=== PATIENT | male | born 1990 | race Caucasian/White ===

== ENCOUNTER 2019-08-18 12:13 | Outpatient (CLI) | payer BC, MEDICAID, SELFPAY ==
--- NOTE | 2019-08-18 12:26 | CT_ITS ---
WS: [id number] CT ABDOMEN CONTRAST TECHNIQUE: Contrast enhanced CT of the abdomen with coronal and sagittal reformatted images. CLINICAL INFORMATION: HTN/?PHENOCHROLOCYTOMA DUE TO ELEVATED URINE METANEPHINES COMPARISON: None. DLP: 971.[address] scans at [facility] use at least one of these dose optimization techniques: automat ed exposure control; mA and/or kV adjustment per patient size (includes targeted exams where dose is matched to clinical indication); or iterative reconstruction. FINDINGS: Diffuse fatty infiltration of the liver. Normal portal vein and splenic vein. Gallbladder is contract ed. Hepatomegaly Measuring 17.7 CM. Normal spleen. Normal GE junction. Noncalcified pulmonary nodule righ t lower lobe measuring 3.8 mm. Lung bases are well aerated. Adrenal glands are normal. No adrenal lesions. Normal renal parenchymal enhancement. No hydronephrosi s. Tiny left renal cyst. Proximal ureters appear normal. Incidental fat-containing abdominal hernia. No abdominal lymphadenopathy. Normal GE junction. CT/CT abdomen w con* [id number] IMPRESSION: 1. Hepatomegaly with diffuse fatty infiltration of the liver. 2. Gallbladder is contracted. 3. No adrenal lesions. Adrenal glands appear normal. 4. Tiny noncalcified pulmonary nodule right lower lobe measuring 3.8 mm. Recom mend 12 month follow-up chest CT. 5. No other significant findings.
[2019-08-18] MEDS: iohexol 300 mg/mL 50 mL Btl PO (13:19)
[2019-08-18] MEDS: iohexol 300 mg/mL 100 mL Btl IV (13:20)
== END 2019-08-18 12:14 | disposition home or self-care (01) ==
LOC: RADWPI 12:25
PROVIDERS: Family Provider Nurse Practitioner Family; PCP Nurse Practitioner Family; Referring Provider Nurse Practitioner Family; Visit Provider Nurse Practitioner Family
DX: R89.9 Unspecified abnormal finding in specimens from other organs, systems and tissues (principal); I10 Essential (primary) hypertension; K76.0 Fatty (change of) liver, not elsewhere classified; R91.1 Solitary pulmonary nodule
CPT/HCPCS: 74160; Q9967

== ENCOUNTER 2019-08-25 07:23 | Outpatient (CLI) | payer BC, MEDICAID, SELFPAY ==
--- NOTE | 2019-08-25 07:48 | USCV_ITS ---
Hussein Bowman Age: 29 Gender: M : 1990 Exam Date: 08/25/2019 08:19 Ordering Phys: Kamila Go NP Technologist: Ahsan Morales Exam Location: [facility] [place] Indication: HTN Aortic Velocity @ SMA (cm/s) 105 RIGHT KIDNEY LEFT KIDNEY Velocity (cm/s) Velocity (cm/s) Sys/Nguyen Sys/Nguyen Resistive Index Resistive Index 82.5 / 21.5 0.74 Proximal Renal Artery 122.1 / 31.2 0.74 60.7 / 16.7 0.73 Mid Renal Artery 108.4 / 35.8 0.67 65.2 / 17.4 0.73 Distal Renal Artery 113.9 / 40.4 0.65 61.4 / 19.7 0.68 Hilar 108.4 / 29.4 0.73 37.5 / 12.2 0.67 Upper Pole 62.4 / 20.2 0.68 31.7 / 10.9 0.66 Mid Pole 62.4 / 21.1 0.66 34.4 / 9.0 0.74 Lower Pole 41.6 / 15.9 0.62 0.80 Renal Aortic Ratio 1.17 Accleration Index (cm/sec2) 954.00 Hilar 1249.0 0 794.00 Upper Pole 1575.0 0 544.00 Mid Pole 1411.0 0 968.00 Lower Pole 1900.0 0 112.2 Kidney Length (mm) 124.9 FINDINGS Normal Doppler flow velocities, ratios and indices. Normal kidney dimensions. CONCLUSIONS 1. No evidence of any significant renal artery stenosis based on the above findings 2. Normal kidney dimensions Dr Joe Olvera MD [facility] (Electronically Signed) Final Date: 25 August 2019 12:53 S
--- NOTE | 2019-08-25 07:48 | USCV_ITS ---
Hussein Bowman Age: 29 Gender: M : 1990 Exam Date: 08/25/2019 08:06 Ordering Phys: Kamila Go NP Technologist: Ahsan Morales [place] [facility] [place]: HTN HX OF [place] BP: 190 / 90 HR: 70 Rhythm: Sinus Technical Quality: Fair MEASUREMENTS (Male / Female) Normal Values 2D ECHO LV Diastolic Diameter PLAX 4.4 cm 4.2 - 5.9 / 3.9 - 5.3 cm LV Systolic Diameter PLAX 2.8 cm IVS Diastolic Thickness 1.0 cm 0.6 - 1.0 / 0.6 - 0.9 cm IVS Systolic Thickness 1.0 cm LVPW Diastolic Thickness 1.1 cm 0.6 - 1.0 / 0.6 - 0.9 cm LVPW Systolic Thickness 1.3 cm LVOT Diameter 2.0 cm LV Ejection Fraction 2D Teich 65.3 % LV Ejection Fraction MOD 2C 63.5 % LV Ejection Fraction 2C AL 64.3 % LA Diameter 4.6 cm LA Width 5.0 cm LA Height 5.2 cm RA Width 4.0 cm RA Height 4.7 cm Aorta at Sinotubular Diameter 2.7 cm M-MODE LV Diastolic Diameter MM 4.6 cm 4.2 - 5.9 / 3.9 - 5.3 cm LV Systolic Diameter MM 3.4 cm LV Ejection Fraction MM Teich 52.4 % IVS Diastolic Thickness MM 1.0 cm 0.6 - 1.0 / 0.6 - 0.9 cm IVS Systolic Thickness MM 1.4 cm LVPW Diastolic Thickness MM 1.0 cm 0.6 - 1.0 / 0.6 - 0.9 cm LVPW Systolic Thickness MM 1.6 cm RV Diastolic Diameter MM 1.7 cm Aortic Annulus Diameter 3.3 cm LA Ao Ratio MM 1.4 MV E Point Septal Separation 1.1 cm DOPPLER AV Peak Velocity 160.0 cm/s LVOT Peak Velocity 123.0 cm/s AV Area Cont Eq vti 2.5 cm squared AV Area Cont Eq pk 2.4 cm squared MV Area PHT 4.4 cm squared Mitral E to A Ratio 1.4 MV E' Velocity 14.0 cm/s Mitral E to MV E' Ratio 7.4 Mitral E to LV E' Lateral Ratio 6.7 Mitral E to LV E' Septal Ratio 8.2 TR Peak Velocity 238.0 cm/s TR Peak Gradient 22.6 mmHg TV Peak E Velocity 100.0 cm/s Right Atrial Pressure 3.0 mmHg Pulmonary Artery Systolic Pressu 25.7 mmHg PV Peak Velocity 151.0 cm/s FINDINGS Left Ventricle Normal left ventricular size, systolic function and wall thickness, with no regional wall motion abnormalities. Normal left ventricular wall thickness. Normal diastolic filling pattern. Left ventricular ejection fraction is estimated at 65 %. Right Ventricle The right ventricle is normal in size and function. Right Atrium The right atrium is normal in size. Left Atrium Mildly increased left atrial size. Mitral Valve Structurally normal mitral valve without significant stenosis or prolapse. There is no mitral regurgitation. Aortic Valve Structurally normal aortic valve without significant sclerosis or stenosis. There is no aortic regurgitation. Tricuspid Valve Structurally normal tricuspid valve without significant stenosis or regurgitation. Pulmonary artery systolic pressure is normal. Pulmonic Valve Structurally normal pulmonic valve without significant stenosis. There is no pulmonic regurgitation. Pericardium Normal pericardium without effusion. Aorta Normal ascending aorta dimension. CONCLUSIONS Normal left ventricular size, systolic function and wall thickness, with no regional wall motion abnormalities. Normal left ventricular wall thickness. Normal diastolic filling pattern. Left ventricular ejection fraction is estimated at 65 %. Mildly increased left atrial size. There are no prior echocardiogram studies to compare. Dr. Benito Rush MD (Electronically Signed) Final Date: 25 August 2019 12:49 S
== END 2019-08-25 07:24 | disposition home or self-care (01) ==
PROVIDERS: Family Provider Nurse Practitioner Family; PCP Nurse Practitioner Family; Visit Provider Nurse Practitioner Family
DX: R01.1 Cardiac murmur, unspecified (principal); I11.9 Hypertensive heart disease without heart failure
CPT/HCPCS: 93306; 93975

== ENCOUNTER 2020-10-25 11:06 | Outpatient (CLI) | payer MEDICAID, SELFPAY ==
--- NOTE | 2020-10-25 11:20 | XR_ITS ---
WS: [id number] PROCEDURE: XR chest 2V* [id number] CLINICAL INFORMATION: SOLITARY PULMONARY NODULE COMPARISON: CT abdomen pelvis August 18, 2019 FINDINGS: Heart: Normal cardiac silhouette. Lungs: Lungs are clear. No consolidation or pleural fluid. 3.8 pulmonary nodule right lower lobe seen on the prior CT not well seen on the radiograph. This can be followed up with chest CT. Bones: Normal visualized bony structures. XR/XR chest 2V* [id number] IMPRESSION: 1. 3.8 pulmonary nodule right lower lobe seen on the prior CT not well seen on today's radiograph. This can be followed up with chest CT. 2. No other significant findings.
== END 2020-10-25 11:07 | disposition home or self-care (01) ==
PROVIDERS: PCP Nurse Practitioner Family; Visit Provider Nurse Practitioner Family
DX: R91.1 Solitary pulmonary nodule (principal)
CPT/HCPCS: 71046

== ENCOUNTER 2020-11-08 08:35 | Outpatient (CLI) | payer MEDICAID, SELFPAY ==
--- NOTE | 2020-11-08 08:51 | CT_ITS ---
WS: [id number] CT CHEST TECHNIQUE: Contrast enhanced CT of the chest with coronal and sagittal reformatted images. CLINICAL INFORMATION: FOLLOW UP LUNG MASS COMPARISON: CT abdomen pelvis August 18, 2019 DLP: 965.[address] scans at [facility] use at least one of these dose optimization techniques: automat ed exposure control; mA and/or kV adjustment per patient size (includes targeted exams where dose is matched to clinical indication); or iterative reconstruction. FINDINGS: Stable noncalcified 3.5 mm pulmonary nodule right lower lobe. This is unchanged from previous. Slight hazy subpleural atelectasis right lower lobe. No other suspicious pulmonary parenchymal opacities. N o focal pneumonia or pleural fluid. Proximal main pulmonary arteries are normal. Normal caliber thoracic aorta. No mediastinal or hilar l ymphadenopathy. No axillary lymphadenopathy. Adrenal glands are normal. Hepatomegaly with diffuse fatty infiltration liver. CT/CT chest w con* [id number] IMPRESSION: 1. Stable noncalcified 3.5 mm nodule right lower lobe. This is unchanged from previous the CT abdomen pelvis. Recommend 12 month follow-up chest CT. 2. No other suspicious pulmonary parenchymal opacities. 3. No mediastinal or hilar lymphadenopathy. 4. Hepatomegaly with diffuse fatty infiltration liver.
[2020-11-08] MEDS: iohexol 300 mg/mL 100 mL Btl IV (09:09)
== END 2020-11-08 08:36 | disposition home or self-care (01) ==
LOC: RADWPI 08:37
PROVIDERS: PCP Nurse Practitioner Family; Visit Provider Family Medicine
DX: R91.1 Solitary pulmonary nodule (principal); R16.0 Hepatomegaly, not elsewhere classified; K76.0 Fatty (change of) liver, not elsewhere classified
CPT/HCPCS: 71260; Q9967

== ENCOUNTER 2022-02-01 08:41 | Outpatient (CLI) | payer MEDICAID, SELFPAY ==
--- NOTE | 2022-02-01 08:51 | CT_ITS ---
WS: [id number] CT CHEST WITH INTRAVENOUS CONTRAST HISTORY: SOLITARY PULMONARY NODULE TECHNIQUE: Contiguous 5 mm axial imaging performed on the thorax. Coronal and sagittal reformats are submitted. All CT scans at [facility] use at least one of these dose optimization techniques: automated exposure control; mA and/or kV adjustment per patient size (includes targeted exams where dose is matched to clinical indication); or iterative reconstruction. CONTRAST: Omnipaque 350; 95 mL IV. DLP: 796.68 mGy.cm COMPARISON: 11/08/2020 Lungs and central airway: Previously described 3.5 mm nodule at the RIGHT lung base is now calcified. Consistent with a benign granuloma. Additional benign granuloma at the RIGHT apex. No suspicious mas s or calcifications identified on today's examination. No pneumonia. No endobronchial lesion. Pleura: Normal. No pleural effusion. Heart and pericardium: Normal size heart with no pericardial effusion. Mediastinum and meeta: Small reactive type lymph nodes at the hilar regions. No enlarged lymph nodes. Vessels: Normal size aortic and pulmonary artery. No coronary artery calcifications. Chest wall and lower neck: No soft tissue masses. Upper abdomen: Enlarged liver with hepatic steatosis. Normal portal vein. Contracted gallbladder. No adrenal mass. Osseous structures: No destructive process. CT/CT chest w con* [id number] IMPRESSION: 1. Previously described 3.5 mm nodule at the RIGHT lung base is now calcified. Consistent with benign granuloma. No suspicious mass or nodules. 2. Hepatic steatosis.
[2022-02-01] MEDS: iohexol 350 mg/mL 100 mL Btl IV (09:24)
== END 2022-02-01 08:42 | disposition home or self-care (01) ==
PROVIDERS: PCP Nurse Practitioner Family; Visit Provider Nurse Practitioner Family
DX: R91.1 Solitary pulmonary nodule (principal); K76.0 Fatty (change of) liver, not elsewhere classified
CPT/HCPCS: 71260

== ENCOUNTER 2022-04-26 15:49 | Outpatient (CLI) | payer MEDICAID, SELFPAY ==
--- NOTE | 2022-04-26 16:07 | XR_ITS ---
WS: [id number] EXAMINATION: XR knee RT 1-2V [id number] REASON FOR EXAM: PAIN IN KNEES COMPARISON: None available. ORDER DATE: 04/26/2022 4:09 PM FINDINGS: There is no sign of any acute osseous or articular abnormality. There are no specific soft tissue abn ormalities. XR/XR knee RT 1-2V [id number] IMPRESSION: No acute change
--- NOTE | 2022-04-26 16:07 | XR_ITS ---
WS: [id number] EXAMINATION: XR knee LT 1-2V [id number] REASON FOR EXAM: PAIN IN KNEES COMPARISON: None available. ORDER DATE: 04/26/2022 4:09 PM FINDINGS: There is no sign of any acute osseous or articular abnormality. There are no specific soft tissue abn ormalities. XR/XR knee LT 1-2V [id number] IMPRESSION: No acute change
== END 2022-04-26 15:50 | disposition home or self-care (01) ==
PROVIDERS: PCP Nurse Practitioner Family; Visit Provider Nurse Practitioner Family
DX: M25.562 Pain in left knee (principal)
CPT/HCPCS: 73560

== ENCOUNTER 2023-09-21 05:25 | Emergency (ER) | payer MEDICAID, SELFPAY ==
[2023-09-21 05:26] VITALS: BP 197/116; PULSE 87; RESP 16; TEMP 36.4; O2SAT 94; BMI 34.2
--- NOTE | 2023-09-21 05:31 | W.ED.ABDPA2 ---
Documented by User: Xander Raines DO 09/21/23 05:37 HPI - Abdominal Pain General: Chief Complaint: Abdominal Pain Stated Complaint: Abd Pain Time Seen by Provider: 09/21/23 05:26 History of Present Illness: Patient presents to the ER from EMS with complaints of left flank, left upper quadrant abdominal pain radiating down to the left lower quadrant near the groin. Patient says woke him up from sleep at about 230 this morning. Says it feels like he got kicked in the flank by Lm. Patients family has a history of kidney stones with patient does not. Patient says he has not taken his blood pressure medicine for about the last 3 weeks. Patient blood pressure upon arrival is 197/116. EMS did give him approximately 200 mcg of fentanyl on route and this took the pain down from a 9/10 to about a 5/10. Patient denies any pain burning frequency or dysuria, fevers chills, Patient seen Dr. Brown June 2020, resistant hypertension, had renal Doppler which was negative, elevated triglycerides, echo with normal left ventricular systolic function in August 2019, medication changes, Review of Systems General: Reports: 10 or more systems reviewed and unremarkable except in HPI and below PFSH ED PFSH: Medical History Hypertension Family History Grandfather CAD (coronary artery disease) Hypertension Father Hypertension Brother Hypertension Social History Smoking and tobacco/nicotine status: never used tobacco/nicotine Alcohol intake: current Alcohol intake frequency: few times a week Alcohol type: beer Physical Exam Const: COMMON NORMALS: no acute distress, average body habitus, patient oriented x3, no limitations, healthy appearing, alert and well nourished HENMT: COMMON NORMALS: normocephalic, atraumatic, hearing grossly normal bilaterally, external ears normal, Normal external nose present, moist oral mucous membranes and oropharynx normal HEAD & SCALP: normocephalic and atraumatic NOSE: Normal external nose present EXTERNAL EAR: Yes external ears normal Neck/C-Spine: COMMON NORMALS: no JVD Chest: COMMONS NORMALS: normal inspection of the chest and normal palpation of entire chest wall Resp: COMMON NORMALS: normal respiratory effort, No retractions, No use of accessory muscles and clear to auscultation bilaterally AUSCULTATION: clear to auscultation bilaterally Cardio: COMMON NORMALS: no JVD, regular rate, regular rhythm, S1 normal heart sound present, S2 normal heart sound present, No gallops present (Cardio), No clicks present (Cardio), No murmurs present (Cardio) and No rub (Cardio) RATE: regular rate RHYTHM: regular rhythm HEART SOUNDS: S1 normal heart sound present and S2 normal heart sound present GI: COMMON NORMALS: Normal to inspection, nondistended, normoactive bowel sounds present, Soft to palpation and No hepatosplenomegaly present; negative for non-tender (Mildly tender to palpate left flank, mild to moderate left side of abdomen,) PALPATION: Yes Soft to palpation and Yes No hepatosplenomegaly present Neuro: COMMON NORMALS: patient oriented x3 SENSORIUM/ORIENTATION: Yes alert Course Vital Signs: Vital signs: Vital Signs Temperature 97.6 F 09/21/23 05:26 Pulse Rate 91 09/21/23 06:30 Respiratory Rate 16 09/21/23 06:30 Blood Pressure 181/101 09/21/23 06:30 Pulse Oximetry 97 09/21/23 06:30 Oxygen Delivery Me thod Room Air 09/21/23 06:30 MDM - Abdominal Pain Differential Diagnosis Likely abdominal pain and calculus of kidney; Unlikely acute appendicitis, constipation, diverticulitis, endometriosis, gastroenteritis, pancreatitis or small bowel obstruction Medical Records I reviewed the patient's medical records. Lab Data I reviewed the patient's lab results. 09/21/23 05:40 09/21/23 05:40 Labs/Radiology: Radiology Impressions Abdomen/Pelvis CT 09/21/23 05:38 IMPRESSION: 3 mm distal left ureteral calculus near the left ureterovesical junction with moderate hydronephrosis and hydroureter. Laboratory Results WBC 10.70 10^3/uL (3.29-11.43) 09/21/23 05:40 RBC 5.26 10^6/uL (3.85-5.65) 09/21/23 05:40 Hgb 15.50 g/dL (11.27-16.99) 09/21/23 05:40 Hct 46.6 % (37-53) 09/21/23 05:40 MCV 88.6 fl (82-101) 09/21/23 05:40 MCH 29.5 pg (27-33) 09/21/23 05:40 MCHC 33.3 g/dL (30-55) 09/21/23 05:40 RDW 12.4 % (12.1-15.1) 09/21/23 05:40 Plt Count 223 10^3/cmm (157-399) 09/21/23 05:40 MPV 9.3 fL (7.4-10.4) 09/21/23 05:40 Neut % (Auto) 82.2 % 09/21/23 05:40 Lymph % (Auto) 11.9 % 09/21/23 05:40 [place] % (Auto) 4.5 % 09/21/23 05:40 Eos % (Auto) 0.6 % 09/21/23 05:40 Baso % (Auto) 0.3 % 09/21/23 05:40 Neut # (Auto) 8.81 10^3/uL (1.8-7.7) H 09/21/23 05:40 Lymph # (Auto) 1.3 10^3/uL (0.8-4.8) 09/21/23 05:40 [place] # (Auto) 0.5 10^3/uL (0.2-0.9) 09/21/23 05:40 Eos # (Auto) 0.1 10^3/uL (0.0-0.8) 09/21/23 05:40 Baso # (Auto) 0.0 10^3/uL (0.0-0.1) 09/21/23 05:40 Nucleated RBC % (auto) 0 % 09/21/23 05:40 Nucleated RBCs # 0.0 /100WBC 09/21/23 05:40 Sodium 139 mmol/L (136-145) 09/21/23 05:40 Potassium 3.7 mmol/L (3.5-5.1) 09/21/23 05:40 Chloride 104 mmol/L (98-107) 09/21/23 05:40 Carbon Dioxide 22 mmol/L (22-29) 09/21/23 05:40 Anion Gap 16.7 (5-19) 09/21/23 05:40 BUN 11 mg/dL (6-20) 09/21/23 05:40 Creatinine 1.1 mg/dL (0.7-1.2) 09/21/23 05:40 GFR Calculation 77.6 mL/min (90-130) L 09/21/23 05:40 Glucose 140 mg/dL (65-115) H 09/21/23 05:40 Calculated Osmolality 290 mOsm/kg (285-295) 09/21/23 05:40 Calcium 8.9 mg/dL (8.5-10.5) 09/21/23 05:40 Total Bilirubin 0.4 mg/dL (0.15-1.2) 09/21/23 05:40 AST 25 U/L (0-40) 09/21/23 05:40 ALT 58 U/L (0-41) H 09/21/23 05:40 Alkaline Phosphatase 115 U/L (40-130) 09/21/23 05:40 Total Protein 7.9 g/dL (6.6-8.7) 09/21/23 05:40 Albumin 4.6 g/dL (3.5-5.2) 09/21/23 05:40 Globulin 3.3 g/dL (1.3-4.6) 09/21/23 05:40 Lipase 47 U/L (13-60) 09/21/23 05:40 Urine Color Yellow (Yellow) 09/21/23 06:25 Urine Appearance Hazy (CLEAR) A 09/21/23 06:25 Urine pH 6.5 (5-7) 09/21/23 06:25 Ur Specific [place] 1.020 (1.005-1.030) 09/21/23 06:25 Urine Protein Neg (Negative) 09/21/23 06:25 Urine Glucose (UA) Norm (Normal) 09/21/23 06:25 Urine Ketones 1+ (Negative) H 09/21/23 06:25 Urine Blood Neg (Negative) 09/21/23 06:25 Urine Nitrate Negative (Negative) 09/21/23 06:25 Urine Bilirubin Neg (Negative) 09/21/23 06:25 Urine Urobilinogen Neg mg/dL (Negative) 09/21/23 06:25 Ur Leukocyte Esterase Negative (Negative) 09/21/23 06:25 Urine RBC 0-4 /hpf (0-2) H 09/21/23 06:25 Urine WBC Rare /hpf (0-5) 09/21/23 06:25 Ur Squamous Epith Cells Rare /hpf (0-5) 09/21/23 06:25 Amorphous Sediment 2+ /hpf 09/21/23 06:25 Urine Bacteria Trace /hpf (NONE) 09/21/23 06:25 Coarse Granular Casts 0-4 /lpf H 09/21/23 06:25 Urine Mucus Trace /hpf 09/21/23 06:25 All radiology interpretation(s) finalized by discharge Discharge Plan Discharge Patient Disposition: Home Clinical Impression: Calculus of kidney Condition: Stable Prescriptions: New hydrocodone-acetaminophen 5-325 mg tablet 1 tab PO Q6H PRN (Reason: pain) Qty: 25 0RF promethazine 25 mg tablet 25 mg PO Q6H PRN (Reason: nausea and vomiting) Qty: 20 0RF tamsulosin 0.4 mg capsule 0.4 mg PO DAILY Qty: 20 0RF No Action amlodipine 10 mg tablet 10 mg PO DAILY hydrochlorothiazide 25 mg tablet 25 mg PO DAILY hydralazine 100 mg tablet 100 mg PO TID Qty: 90 3RF metoprolol tartrate 50 mg tablet 50 mg PO BID Qty: 60 3RF Discharge Orders: Discharge ED (Routine); Ordered 09/21/23 Ordered By: Abhi Gordillo Referrals: Kamila Go, FILM DEVELOPER [Primary Care Provider] - Discharge Diet: Usual diet Discharge Activity: Resume usual activity Patient Instructions: Kidney Stones (ED), Opioid Safety, Pain Management Activity Restrictions/Additional Instructions: Thank you for choosing [facility] for your healthcare needs today. Please realize this is an emergency room and that we are providing you with a medical screening exam and this may not be complete and all inclusive of all the testing and or work up that you may need to determine your ailment or severity of your illness. It is very important that you follow up as instructed or that you return to the Emergency Department should you have concerns or if your condition changes or worsens in any way. Sign Out Sign Out Data: Patient Sign Out occurred on 09/21/23 at 06:01. Patient's care was discussed, and care was transferred from Xander Raines DO to Abhi Gordillo DO. Coding Level of Care Code ED Printing Specialist for [employer] Documented by User: Abhi Gordillo DO 09/21/23 07:10 HPI - Abdominal Pain General: Chief Complaint: Abdominal Pain Stated Complaint: Abd Pain Time Seen by Provider: 09/21/23 05:26 [facility] ED PFSH: Medical History Hypertension Family History Grandfather CAD (coronary artery disease) Hypertension Father Hypertension Brother Hypertension Social History Smoking and tobacco/nicotine status: never used tobacco/nicotine Alcohol intake: current Alcohol intake frequency: few times a week Alcohol type: beer Course Vital Signs: Vital signs: Vital Signs Temperature 97.6 F 09/21/23 05:26 Pulse Rate 91 09/21/23 06:30 Respiratory Rate 16 09/21/23 06:30 Blood Pressure 181/101 09/21/23 06:30 Pulse Oximetry 97 09/21/23 06:30 Oxygen Delivery Me thod Room Air 09/21/23 06:30 MDM - Abdominal Pain Medical Decision Making Care assumed at change of shift. Patient has left nephrolithiasis is less than 3 mm at the UVJ. He does have some hydronephrosis no sign of infection. Will have the patient strain urine hydrocodone promethazine as needed. Scheduled tamsulosin. Referral to urology. Return if pain uncontrolled Differential Diagnosis Likely calculus of kidney Medical Records I reviewed the patient's medical records. Lab Data 09/21/23 05:40 09/21/23 05:40 Labs/Radiology: Radiology Impressions Abdomen/Pelvis CT 09/21/23 05:38 IMPRESSION: 3 mm distal left ureteral calculus near the left ureterovesical junction with moderate hydronephrosis and hydroureter. Laboratory Results WBC 10.70 10^3/uL (3.29-11.43) 09/21/23 05:40 RBC 5.26 10^6/uL (3.85-5.65) 09/21/23 05:40 Hgb 15.50 g/dL (11.27-16.99) 09/21/23 05:40 Hct 46.6 % (37-53) 09/21/23 05:40 MCV 88.6 fl (82-101) 09/21/23 05:40 MCH 29.5 pg (27-33) 09/21/23 05:40 MCHC 33.3 g/dL (30-55) 09/21/23 05:40 RDW 12.4 % (12.1-15.1) 09/21/23 05:40 Plt Count 223 10^3/cmm (157-399) 09/21/23 05:40 MPV 9.3 fL (7.4-10.4) 09/21/23 05:40 Neut % (Auto) 82.2 % 09/21/23 05:40 Lymph % (Auto) 11.9 % 09/21/23 05:40 [place] % (Auto) 4.5 % 09/21/23 05:40 Eos % (Auto) 0.6 % 09/21/23 05:40 Baso % (Auto) 0.3 % 09/21/23 05:40 Neut # (Auto) 8.81 10^3/uL (1.8-7.7) H 09/21/23 05:40 Lymph # (Auto) 1.3 10^3/uL (0.8-4.8) 09/21/23 05:40 [place] # (Auto) 0.5 10^3/uL (0.2-0.9) 09/21/23 05:40 Eos # (Auto) 0.1 10^3/uL (0.0-0.8) 09/21/23 05:40 Baso # (Auto) 0.0 10^3/uL (0.0-0.1) 09/21/23 05:40 Nucleated RBC % (auto) 0 % 09/21/23 05:40 Nucleated RBCs # 0.0 /100WBC 09/21/23 05:40 Sodium 139 mmol/L (136-145) 09/21/23 05:40 Potassium 3.7 mmol/L (3.5-5.1) 09/21/23 05:40 Chloride 104 mmol/L (98-107) 09/21/23 05:40 Carbon Dioxide 22 mmol/L (22-29) 09/21/23 05:40 Anion Gap 16.7 (5-19) 09/21/23 05:40 BUN 11 mg/dL (6-20) 09/21/23 05:40 Creatinine 1.1 mg/dL (0.7-1.2) 09/21/23 05:40 GFR Calculation 77.6 mL/min (90-130) L 09/21/23 05:40 Glucose 140 mg/dL (65-115) H 09/21/23 05:40 Calculated Osmolality 290 mOsm/kg (285-295) 09/21/23 05:40 Calcium 8.9 mg/dL (8.5-10.5) 09/21/23 05:40 Total Bilirubin 0.4 mg/dL (0.15-1.2) 09/21/23 05:40 AST 25 U/L (0-40) 09/21/23 05:40 ALT 58 U/L (0-41) H 09/21/23 05:40 Alkaline Phosphatase 115 U/L (40-130) 09/21/23 05:40 Total Protein 7.9 g/dL (6.6-8.7) 09/21/23 05:40 Albumin 4.6 g/dL (3.5-5.2) 09/21/23 05:40 Globulin 3.3 g/dL (1.3-4.6) 09/21/23 05:40 Lipase 47 U/L (13-60) 09/21/23 05:40 Urine Color Yellow (Yellow) 09/21/23 06:25 Urine Appearance Hazy (CLEAR) A 09/21/23 06:25 Urine pH 6.5 (5-7) 09/21/23 06:25 Ur Specific [place] 1.020 (1.005-1.030) 09/21/23 06:25 Urine Protein Neg (Negative) 09/21/23 06:25 Urine Glucose (UA) Norm (Normal) 09/21/23 06:25 Urine Ketones 1+ (Negative) H 09/21/23 06:25 Urine Blood Neg (Negative) 09/21/23 06:25 Urine Nitrate Negative (Negative) 09/21/23 06:25 Urine Bilirubin Neg (Negative) 09/21/23 06:25 Urine Urobilinogen Neg mg/dL (Negative) 09/21/23 06:25 Ur Leukocyte Esterase Negative (Negative) 09/21/23 06:25 Urine RBC 0-4 /hpf (0-2) H 09/21/23 06:25 Urine WBC Rare /hpf (0-5) 09/21/23 06:25 Ur Squamous Epith Cells Rare /hpf (0-5) 09/21/23 06:25 Amorphous Sediment 2+ /hpf 09/21/23 06:25 Urine Bacteria Trace /hpf (NONE) 09/21/23 06:25 Coarse Granular Casts 0-4 /lpf H 09/21/23 06:25 Urine Mucus Trace /hpf 09/21/23 06:25 Discharge Plan Discharge Patient Disposition: Home Clinical Impression: Calculus of kidney Condition: Stable Prescriptions: New hydrocodone-acetaminophen 5-325 mg tablet 1 tab PO Q6H PRN (Reason: pain) Qty: 25 0RF promethazine 25 mg tablet 25 mg PO Q6H PRN (Reason: nausea and vomiting) Qty: 20 0RF tamsulosin 0.4 mg capsule 0.4 mg PO DAILY Qty: 20 0RF No Action amlodipine 10 mg tablet 10 mg PO DAILY hydrochlorothiazide 25 mg tablet 25 mg PO DAILY hydralazine 100 mg tablet 100 mg PO TID Qty: 90 3RF metoprolol tartrate 50 mg tablet 50 mg PO BID Qty: 60 3RF Discharge Orders: Discharge ED (Routine); Ordered 09/21/23 Ordered By: Abhi Gordillo Referrals: Kamila Go NP [Primary Care Provider] - Discharge Diet: Usual diet Discharge Activity: Resume usual activity Patient Instructions: Kidney Stones (ED), Opioid Safety, Pain Management Activity Restrictions/Additional Instructions: Thank you for choosing [facility] for your healthcare needs today. Please realize this is an emergency room and that we are providing you with a medical screening exam and this may not be complete and all inclusive of all the testing and or work up that you may need to determine your ailment or severity of your illness. It is very important that you follow up as instructed or that you return to the Emergency Department should you have concerns or if your condition changes or worsens in any way. Sign Out Sign Out Data: Patient Sign Out occurred on 09/21/23 at 06:01. Patient's care was discussed, and care was transferred from Xander Raines DO to Abhi Gordillo DO. Coding Level of Care Code ED Printing Specialist for Valentine Reid
--- NOTE | 2023-09-21 05:38 | CTR_ITS ---
PROCEDURE INFORMATION: Exam: CT Abdomen And Pelvis Without Contrast Exam date and time: 09/21/2023 5:55 AM Age: 33 years old Clinical indication: Abdominal pain; Flank; Left; Additional info: Left flank pain, hypertension TECHNIQUE: Imaging protocol: Computed tomography of the abdomen and pelvis without contrast. Radiation optimization: All CT scans at this facility use at least one of these dose optimization techniques: automated exposure control; mA and/or kV adjustment per patient size (includes targeted exams where dose is matched to clinical indication); or iterative reconstruction. COMPARISON: CT abdomen w con* [id number] 08/18/2019 1:11 PM RADIATION DOSE METRICS: Total DLP (mGy-cm): 1121.03 FINDINGS: Liver: Diffuse fatty liver. No liver mass. Gallbladder and bile ducts: Normal. No calcified stones. No ductal dilation. Pancreas: Normal. No ductal dilation. Spleen: Normal. No splenomegaly. Adrenal glands: Normal. No mass. Kidneys and ureters: There is a 3 mm distal left ureteral calculus at the left ureterovesical junction with moderate left hydronephrosis and hydroureter. There is mild left perinephric stranding. There are multiple nonobstructing calcifications in the left kidney. The right kidney is unremarkable. Stomach and bowel: Unremarkable. No obstruction. No mucosal thickening. Appendix: No evidence of appendicitis. Intraperitoneal space: Unremarkable. No free air. No significant fluid collection. Vasculature: Unremarkable. No abdominal aortic aneurysm. Lymph nodes: Unremarkable. No enlarged lymph nodes. Urinary bladder: Unremarkable as visualized. Reproductive: Unremarkable as visualized. Bones/joints: Unremarkable. No acute fracture. Soft tissues: Unremarkable. CT/CT kidney stone [id number] IMPRESSION: 3 mm distal left ureteral calculus near the left ureterovesical junction with moderate hydronephrosis and hydroureter.
[2023-09-21] MEDS: ketorolac 30 mg/mL INJ IVP (05:45)
[2023-09-21] MEDS: sodium chloride 0.9% 1,000 ML 999 ML IV (05:46)
[2023-09-21] MEDS: hyDRALAzine 20 mg/mL INJ 1 mL IVP (05:46)
[2023-09-21] MEDS: ondansetron 2 mg/ML SDV 2 mL 4 MG IVP ×2 (05:46→07:29)
[2023-09-21 05:48] LABS: Basophils % 0.3 %; Eosinophils # 0.1 10^3/uL (0.0-0.8); Eosinophils % 0.6 %; Hematocrit 46.6 % (37-53); Lymphocytes # 1.3 10^3/uL (0.8-4.8); Lymphocytes % 11.9 %; Mean Corpuscular HGB Conc 33.3 g/dL (30-55); Mean Corpuscular Hemoglobin 29.5 pg (27-33); Mean Corpuscular Volume 88.6 fl (82-101); Mean Platelet Volume 9.3 fL (7.4-10.4); Monocytes # 0.5 10^3/uL (0.2-0.9); Monocytes % 4.5 %; Neutrophils # 8.81 10^3/uL (1.8-7.7); Neutrophils % 82.2 %; Nucleated Red Blood Cells % 0 %; Platelet Count 223 10^3/cmm (157-399); Red Blood Count 5.26 10^6/uL (3.85-5.65); Red Cell Distribution Width 12.4 % (12.1-15.1)
[2023-09-21 06:00] VITALS: BP 192/110; PULSE 98; RESP 16; O2SAT 96
[2023-09-21 06:06] LABS: Alanine Aminotransferase 58 U/L (0-41); Albumin Level 4.6 g/dL (3.5-5.2); Alkaline Phosphatase 115 U/L (40-130); Anion Gap 16.7 (5-19); Aspartate Amino Transferase 25 U/L (0-40); Blood Urea Nitrogen 11 mg/dL (6-20); Calcium 8.9 mg/dL (8.5-10.5); Carbon Dioxide 22 mmol/L (22-29); Chloride 104 mmol/L (98-107); Creatinine Clr Calc Pharmacy 129.7004; Globulin 3.3 g/dL (1.3-4.6); Glomerular Filtration Rate 77.6 mL/min (90-130); Glucose 140 mg/dL (65-115); Lipase 47 U/L (13-60); Osmolality Calculated 290 mOsm/kg (285-295); Potassium 3.7 mmol/L (3.5-5.1); Sodium 139 mmol/L (136-145); Total Bilirubin 0.4 mg/dL (0.15-1.2); Total Protein 7.9 g/dL (6.6-8.7)
[2023-09-21 06:30] VITALS: BP 181/101; PULSE 91; RESP 16; O2SAT 97
[2023-09-21 06:55] LABS: Add Urine Microscopic? YES; Bacteria Urine TRACE /hpf; Bilirubin Urine Neg (Negative); Blood Urine Neg (Negative); Glucose Urine UA Norm (Normal); Ketones Urine 1+ (Negative); Leukocyte Esterase Urine Negative (Negative); Nitrate Urine Negative (Negative); Protein Urine Neg (Negative); RBC Urine 0-4 /hpf (0-2); Squamous Epithelial Cell Urine RARE /hpf (0-5); Urine Appearance Hazy (CLEAR); Urine Color Yellow (Yellow); Urobilinogen Urine Neg (Negative); WBC Urine RARE /hpf (0-5); pH Urine 6.5 (5-7)
[2023-09-21 06:56] LABS: Add Urine Culture? No; Amorphous Sediment Urine 2+ /hpf; Coarse Granular Casts Urine 0-4 /lpf; Mucus Urine TRACE /hpf
[2023-09-21 07:29] VITALS: RESP 15; O2SAT 96
[2023-09-21] MEDS: fentaNYL 50 mcg/mL INJ 2mL IVP (07:29)
[2023-09-21 07:30] VITALS: BP 184/95; PULSE 98; RESP 15; O2SAT 97
--- NOTE | 2023-09-21 07:33 | PC.PHAR ---
PT STATES SHOULD BE TAKING 4 MEDICATIONS BUT IS NOT TAKING ANY OF THEM. VERIFIED WITH PT
--- NOTE | 2023-09-24 08:39 | DCPLANNER ---
Sent referral to [facility]
== END 2023-09-21 08:12 | disposition home or self-care (01) ==
PROVIDERS: Emergency Medicine; Emergency Provider Family Medicine; PCP Nurse Practitioner Family
DX: N13.2 Hydronephrosis with renal and ureteral calculous obstruction (principal); I10 Essential (primary) hypertension
CPT/HCPCS: 74176; 80053; 81001; 83690; 85025; 96361; 96374; 96375; 96376; 99285; J0360; J1885; J2405; J3010; J7030

== ENCOUNTER 2024-07-07 11:32 | Outpatient (CLI) | payer MEDICAID, SELFPAY ==
--- NOTE | 2024-07-07 11:42 | XR_ITS ---
WS: [id number] Exam: XR chest 2V* [id number] Date/Time of Exam: 07/07/2024 11:43 AM Reason For Exam: SOLITARY PULMONARY MODULE Comparison 10/25/2020. The lungs are clear and fully expanded. Normal cardiomediastinal silhouette and regional bony elements. No pleural effusions. XR/XR chest 2V* [id number] IMPRESSION: 1. Negative chest.
== END 2024-07-07 11:33 | disposition home or self-care (01) ==
LOC: RAD 11:40
PROVIDERS: PCP Nurse Practitioner Family; Visit Provider Nurse Practitioner Family
DX: R91.1 Solitary pulmonary nodule (principal)
CPT/HCPCS: 71046